=== PATIENT | female | born 1985 | race American Indian/Alaskan Native ===

== ENCOUNTER 2019-01-17 20:37 | Emergency (ER) | payer OTHER ==
--- NOTE | 2019-01-17 21:03 | Emergency Department Report ---
Blank Doc - Documentation Documentation: 33 y/o female comes in for chest pain. She has been out of her lisinopril for a week. Feels overwhelmed. Tearful in Triage.
[2019-01-17] MEDS ORDERED: CATAPRES PO ONE (21:04)
[2019-01-17] MEDS ORDERED: CATAPRES ONE (21:10)
[2019-01-17 21:49] LABS: Hematocrit 40.2 % (30.3-42.9); Hemoglobin 12.6 gm/dl (10.1-14.3); Mean Corpuscular HGB Conc 31 % (30-34); Mean Corpuscular Volume 79 fl (79-97); Platelet Count 166 K/mm3 (140-440); Red Blood Count 5.09 M/mm3 (3.65-5.03); Red Cell Distribution Width 15.5 % (13.2-15.2)
[2019-01-17 21:50] LABS: Basophils # (Auto) 0.1 K/mm3 (0.0-0.1); Basophils % (Auto) 0.9 % (0.0-1.8); Eosinophils # (Auto) 0.2 K/mm3 (0.0-0.4); Eosinophils % (Auto) 2.8 % (0.0-4.3); Lymphocytes # (Auto) 1.6 K/mm3 (1.2-5.4); Lymphocytes % (Auto) 27.9 % (13.4-35.0); Monocytes # (Auto) 0.7 K/mm3 (0.0-0.8); Monocytes % (Auto) 12.8 % (0.0-7.3)
--- NOTE | 2019-01-17 21:51 | XRay Report ---
PROCEDURE: XR CHEST ROUTINE 2V TECHNIQUE: PA and lateral chest radiographs were obtained. HISTORY: chest pain COMPARISONS: None. FINDINGS: Heart: Normal. Mediastinum/Vessels: Normal. Lungs/Pleural space: Normal. Bony thorax: No acute osseous abnormality. IMPRESSION: Normal examination. This document is electronically signed by Juan David MD., January 17 2019 09:49:33 PM ET
[2019-01-17 21:55] LABS: Alanine Aminotransferase 18 units/L (7-56); Albumin 3.6 g/dL (3.9-5); BUN/Creatinine Ratio 14; Blood Urea Nitrogen 13 mg/dL (7-17); Calcium 9.5 mg/dL (8.4-10.2); Hemolysis Index 9
[2019-01-17] MEDS ORDERED: TYLENOL PO ONE (22:15)
[2019-01-17] MEDS ORDERED: TORADOL IM ONE (22:15)
[2019-01-17] MEDS ORDERED: PEPCID PO ONE (22:15)
--- NOTE | 2019-01-17 22:54 | Emergency Department Report ---
ED Chest Pain HPI - General Chief Complaint: Chest Pain Stated Complaint: CHEST PAIN Time Seen by Provider: 01/17/19 22:03 Source: patient, RN notes reviewed, old records reviewed Mode of arrival: Ambulatory Limitations: No Limitations - History of Present Illness Initial Comments: Primary care Dr.: Dr. Womack This is a 33-year-old female. The patient is not known to this provider previously. Past medical history includes hypertension, and obesity. She ran out of her medication at home, was in a protocol, believes that it was 20 mg. Patient reports that she is not . She does not take oral contraceptives. She has not taken aspirin within the past 7 days. She denies DVT, pulmonary embolus risk factors. The patient presents to emergency room with complaint of chest pain. The chest pain is sternal, and in the left superior, middle breast. It does not radiate to the back, arms or neck. It is intermittent. It increases with palpation, deep inspiration, decreases with rest. She also reports feeling tired. She also reports feeling short of breath. The shortness of breath is present for one week. The chest pain is present intermittently for one week. The patient denies cocaine use, aspirin use, family history of heart disease. She also reports that she feels very anxious. The patient also complains of headache. The headache is present for a week. It is intermittent. It is not sudden or thunderclap in nature. It is not maximal in intensity. 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 She also admits to using her cell phone quite a bit. However, she does not know how much screen time she has on her cell phone per se. There is no neck pain, no abdominal pain, no urinary symptoms, no lower extremity pain. MD Complaint: chest pain, other -: Gradual, days(s) Pain Location: substernal, left chest Pain Radiation: RUE Severity: moderate Severity scale (0 -10): 9 Quality: tightness, aching Consistency: intermittent Improves With: other Worsens With: other re: dyspnea Aspirin use within the Past 7 Days: (0) No - Related Data On Oral Contraceptives: No Previous Rx's Medication Instructions Recorded Last Taken Type Acetaminophen 650 mg PO Q6HR PRN #30 capsule 01/18/19 Unknown Rx Ibuprofen [Motrin] 600 mg PO Q8H PRN #30 tablet 01/18/19 Unknown Rx Lisinopril [Zestril TAB] 20 mg PO QDAY #30 tablet 01/18/19 Unknown Rx Allergies Allergy/AdvReac Type Severity Reaction Status Date / Time penicillin Allergy Swelling Verified 05/25/15 19:58 Heart Score - HEART Score History: Moderately suspicious EKG: Non-specific Age: < 45 Risk factors: 1-2 risk factors Troponin: < normal limit HEART Score: 3 - Critical Actions Critical Actions: 0-3 pts:0.9-1.7%risk of adverse cardiac event.Candidate for discharge ED Review of Systems ROS: Stated complaint: CHEST PAIN Other details as noted in HPI Constitutional: malaise. denies: fever Eyes: denies: eye discharge ENT: denies: epistaxis Respiratory: shortness of breath Cardiovascular: chest pain Gastrointestinal: denies: nausea, vomiting Genitourinary: denies: dysuria Musculoskeletal: denies: back pain Skin: denies: lesions Neurological: headache, weakness Psychiatric: anxiety ED Past Medical Hx - Past Medical History Previous Medical History?: Yes Hx Hypertension: Yes Additional medical history: Morbid Obesity - Surgical History Past Surgical History?: No - Social History Smoking Status: Current Every Day Smoker Substance Use Type: None - Medications Home Medications: Home Medications Medication Instructions Recorded Confirmed Last Taken Type Acetaminophen 650 mg PO Q6HR PRN #30 capsule 01/18/19 Unknown Rx Ibuprofen [Motrin] 600 mg PO Q8H PRN #30 tablet 01/18/19 Unknown Rx Lisinopril [Zestril TAB] 20 mg PO QDAY #30 tablet 01/18/19 Unknown Rx ED Physical Exam - General Limitations: No Limitations General appearance: alert, anxious, obese - Head Head exam: Present: atraumatic, normocephalic - Eye Eye exam: Present: normal appearance, EOMI. Absent: nystagmus - ENT ENT exam: Present: normal exam, normal orophraynx, mucous membranes moist, normal external ear exam - Neck Neck exam: Present: normal inspection, full ROM. Absent: tenderness, meningismus - Respiratory Respiratory exam: Present: normal lung sounds bilaterally, chest wall tenderness, other (there is reproducible central chest and left breast tendern ess. There is no redness, pus or streaking. Chaperoned by nurse Laura Kern). Absent: respiratory distress - Cardiovascular Cardiovascular Exam: Present: regular rate, normal rhythm, normal heart sounds. Absent: bradycardia, tachycardia, irregular rhythm, systolic murmur, diastolic murmur, rubs, gallop - GI/Abdominal GI/Abdominal exam: Present: soft. Absent: distended, tenderness, guarding, rebound, rigid, pulsatile mass - Extremities Exam Extremities exam: Present: normal inspection, full ROM, other (2+ pulses noted in the bilateral upper, lower extremities. Compartments soft. No long bony tenderness. The pelvis is stable.). Absent: pedal edema, joint swelling, calf tenderness - Back Exam Back exam: Present: normal inspection, full ROM. Absent: tenderness, CVA tenderness (R), paraspinal tenderness, vertebral tenderness - Neurological Exam Neurological exam: Present: alert, oriented X3, CN II-XII intact, normal gait, other (Extraocular movements intact. Tongue midline. No facial droop. Facial sensation intact to light touch in the V1, V2, V3 distribution bilaterally. 5 and 5 strength in 4 extremities.. Sensation is intact to light touch in 4 extremities.). Absent: motor sensory deficit - Psychiatric Psychiatric exam: Present: anxious - Skin Skin exam: Present: warm, dry, intact, normal color. Absent: rash ED Course Vital Signs 01/17/19 01/17/19 01/17/19 20:41 20:58 21:10 Temperature 98.7 F 98.7 F Pulse Rate 97 H 97 H 97 H Respiratory 18 Rate Blood Pressure 217/127 217/127 217/127 Blood Pressure [Left] O2 Sat by Pulse 97 97 Oximetry 01/17/19 01/17/19 01/17/19 21:51 21:56 22:00 Temperature 98.2 F Pulse Rate 94 H 92 H 84 Respiratory 12 17 Rate Blood Pressure 168/101 Blood Pressure 169/116 [Left] O2 Sat by Pulse 97 99 Oximetry 01/17/19 01/17/19 01/17/19 22:15 22:40 22:59 Temperature Pulse Rate 83 Respiratory 11 L 16 16 Rate Blood Pressure 168/101 Blood Pressure [Left] O2 Sat by Pulse 98 98 Oximetry - Reevaluation(s) Reevaluation #1: 01/17/19 22:52 Differential diagnosis, including not limited to: Costochondritis, GERD, gastritis, hiatal hernia, pneumonia, acute coronary syndrome, pulmonary embolus, pleuritis, pericarditis Assessment and plan: 33-year-old female with endorsement of one week of intermittent chest pain, reproducible, troponin negative 1, EKG unchanged from prior, equal pulses in the upper, lower extremities, unremarkable x-ray of the chest, therefore, think aortic disease is very unlikely. Clonidine ordered before my evaluation by physician academic assistant in triage, blood pressure improved. Pulmonary embolus or DVT risk factors, low risk by well's criteria, perc negative However, given endorsement of shortness of breath, pleuritic component, we will send a d-dimer to risk stratify the patient. We will treat her pain. Explained to patient that she is at low risk for major adverse cardiac event. Patient reports that she is reliable to follow up with an outpatient agricultural inspector. Through showed decision-making, assuming unremarkable ER workup, we would consider the patient medically suitable to follow up with an outpatient primary care doctor or agricultural inspector to complete a cardiac risk stratification. Please note that it is typical practice at this institution for our cardiology groups to be amenable to see patients closely as an outpatient, to continue, complete their cardiac risk stratification. Reevaluation #2: 01/18/19 00:13 The patient feels improved. Troponin is negative 2. D-dimer is negative. Blood pressures improved. The patient endorses readiness for discharge. On additional history, she endorses that she's been told that she snores at bed, and occasionally falls asleep during the day, and when front of a TV. She does not have a formal diagnosis of sleep apnea, but given her body habitus and articulated symptoms, I concerned that this may be a coexisting diagnosis. Discussed diet and left, medications, weight loss, and we will also advise outpatient follow-up with his sleep specialist to rule in or rule out a formal diagnosis of obstructive sleep apnea. KINGSLEY score - Kingsley Score Age > 65: (0) No Aspirin use within the Past 7 Days: (0) No 3 or more CAD Risk Factors: (0) No 2 or more Angina events in past 24 hrs: (0) No Known CAD with more than 50% Stenosis: (0) No Elevated Cardiac Markers: (0) No ST Deviation Greater than 0.5mm: (0) No KINGSLEY Score: 0 ED Medical Decision Making - Lab Data Result diagrams: 01/17/19 21:16 01/17/19 21:16 Vital Signs 01/17/19 01/17/19 01/17/19 20:41 20:58 21:10 Temperature 98.7 F 98.7 F Pulse Rate 97 H 97 H 97 H Respiratory 18 Rate Blood Pressure 217/127 217/127 217/127 Blood Pressure [Left] O2 Sat by Pulse 97 97 Oximetry 01/17/19 01/17/19 01/17/19 21:51 21:56 22:00 Temperature 98.2 F Pulse Rate 94 H 92 H 84 Respiratory 12 17 Rate Blood Pressure 168/101 Blood Pressure 169/116 [Left] O2 Sat by Pulse 97 99 Oximetry 01/17/19 22:15 Temperature Pulse Rate 83 Respiratory 11 L Rate Blood Pressure 168/101 Blood Pressure [Left] O2 Sat by Pulse 98 Oximetry Lab Results 01/17/19 01/17/19 Range/Units 21:16 21:16 WBC 5.7 (4.5-11.0) K/mm3 RBC 5.09 H (3.65-5.03) M/mm3 Hgb 12.6 (10.1-14.3) gm/dl Hct 40.2 (30.3-42.9) % MCV 79 (79-97) fl MCH 25 L (28-32) pg MCHC 31 (30-34) % RDW 15.5 H (13.2-15.2) % Plt Count 166 (140-440) K/mm3 Lymph % (Auto) 27.9 (13.4-35.0) % [place] % (Auto) 12.8 H (0.0-7.3) % Eos % (Auto) 2.8 (0.0-4.3) % Baso % (Auto) 0.9 (0.0-1.8) % Lymph # 1.6 (1.2-5.4) K/mm3 [place] # 0.7 (0.0-0.8) K/mm3 Eos # 0.2 (0.0-0.4) K/mm3 Baso # 0.1 (0.0-0.1) K/mm3 Seg Neutrophils % 55.6 (40.0-70.0) % Seg Neutrophils # 3.2 (1.8-7.7) K/mm3 Sodium 142 (137-145) mmol/L Potassium 3.9 (3.6-5.0) mmol/L Chloride 104.3 (98-107) mmol/L Carbon Dioxide 27 (22-30) mmol/L Anion Gap 15 mmol/L BUN 13 (7-17) mg/dL Creatinine 0.9 (0.7-1.2) mg/dL Estimated GFR > 60 ml/min BUN/Creatinine Ratio 14 % Glucose 77 (65-100) mg/dL Calcium 9.5 (8.4-10.2) mg/dL Total Bilirubin 0.20 (0.1-1.2) mg/dL AST 17 (5-40) units/L ALT 18 (7-56) units/L Alkaline Phosphatase 104 (35-129) units/L Troponin T < 0.010 (0.00-0.029) ng/mL Total Protein 7.5 (6.3-8.2) g/dL Albumin 3.6 L (3.9-5) g/dL Albumin/Globulin Ratio 0.9 % - EKG Data -: EKG Interpreted by Oh EKG shows normal: sinus rhythm Rate: normal - EKG Data When compared to previous EKG there are: no significant change Interpretation: no acute changes 01/17/19 22:54 EKG shows a sinus rhythm, 80 beats for minute, normal axis, QTC 444 ms, borderline high left ventricular voltage, early repolarization, nonspecific abnormalities, this EKG is not consistent with ST elevation myocardial infarction, it appears to be unchanged from prior EKG from 05/25/2015. - Radiology Data Radiology results: report reviewed, image reviewed X-ray the chest interpreted as negative for acute disease. Critical care attestation.: If time is entered above; I have spent that time in minutes in the direct care of this critically ill patient, excluding procedure time. ED Disposition Clinical Impression: Elevated blood pressure reading, Chest wall pain, Shortness of breath Disposition: DC-01 TO HOME OR SELFCARE Is pt being admited?: No Does the pt Need Aspirin: No Condition: Stable Instructions: Chest Pain (ED), Snoring (ED) Additional Instructions: Take a blood pressure medication as directed. Take pain medications as needed/directed. Follow up with a primary care doctor or agricultural inspector within the next 3 days for complaint of chest pain and high blood pressure. If following up with [facility] doctors, please make sure to call the front office, through the listed phone numbers, and let the office staff know that the patient was seen here for chest pain, and has been instructed to closely follow up as an outpatient for a cardiac stress test. Please make certain to remain compliant with blood pressure medications. Long-term complications of hypertension and elevated blood pressure includes stroke, heart attack, disability, paralysis, loss of quality of life. I recommended the patient follow up with a sleep specialist within the next 3-4 weeks to evaluate for potential obstructive sleep apnea. Patient may consult her personal insurance company for outpatient references who specializes in sleep, or she may follow-up with either of the local sleep specially doctors, including Gorge Gross and [place] Please return to the emergency room right away with new pain, worsened pain, migration of pain, projectile vomiting, change in mental status, confusion, inability to speak, inability to breathe, new, worsening or different symptoms. Referrals: POLO WOMACK MD, PHD [Staff Physician] - 3-5 Days J CARLOS BECERRA MD [Staff Physician] - 3-5 Days ADRI GROSS MD [Staff Physician] - 3-5 Days [facility] [Provider Group] - 3-5 Days [facility] [Provider Group] - 3-5 Days
[2019-01-17 23:12] LABS: INR 0.98 (0.87-1.13)
[2019-01-18 00:42] VITALS: BP 179/113
== END 2019-01-18 00:41 | disposition home or self-care (01) ==
LOC: ED 20:37
DX: I10 Essential (primary) hypertension (principal); Z88.0 Allergy status to penicillin; E66.9 Obesity, unspecified; Z68.42 Body mass index [BMI] 45.0-49.9, adult
CPT/HCPCS: 36415; 71046; 80053; 84484; 84702; 85025; 85379; 85610; 93005; 93010; 96372; 99284; J1885

== ENCOUNTER 2019-08-04 10:07 | Emergency (ER) | payer OTHER ==
[2019-08-04] MEDS ORDERED: ASPIRIN 325 MG TAB PO ONE (10:12)
[2019-08-04 10:39] LABS: Basophils % (Auto) 0.8 % (0.0-1.8); Eosinophils # (Auto) 0.1 K/mm3 (0.0-0.4); Eosinophils % (Auto) 2.2 % (0.0-4.3); Lymphocytes # (Auto) 1.5 K/mm3 (1.2-5.4); Lymphocytes % (Auto) 26.1 % (13.4-35.0); Mean Corpuscular HGB Conc 31 % (30-34); Mean Corpuscular Volume 81 fl (79-97); Monocytes # (Auto) 0.5 K/mm3 (0.0-0.8); Monocytes % (Auto) 8.8 % (0.0-7.3); Red Blood Count 5.14 M/mm3 (3.65-5.03)
--- NOTE | 2019-08-04 10:48 | XRay Report ---
CHEST 2 VIEWS INDICATION: Chest Pain. COMPARISON: 05/19/2019 FINDINGS: Support devices: None. Heart: Within normal limits. Pulmonary vasculature: Normal. Lungs/pleura: No acute air space or interstitial disease. No pneumothorax. Additional findings: None. IMPRESSION: Normal chest. Signer Name: Alli Greenwood MD Signed: 08/04/2019 10:43 AM Workstation Name: [id number]
[2019-08-04 10:49] LABS: Hematocrit 41.5 % (30.3-42.9); Hemoglobin 12.8 gm/dl (10.1-14.3)
[2019-08-04 11:00] LABS: BUN/Creatinine Ratio 17; Blood Urea Nitrogen 10 mg/dL (7-17); Calcium 9.2 mg/dL (8.4-10.2); Hemolysis Index 7
[2019-08-04] MEDS ORDERED: hydrALAZINE 20 MG/1 ML INJ IV ONE (11:30)
--- NOTE | 2019-08-04 11:30 | Emergency Department Report ---
ED General Adult HPI - General Chief complaint: Chest Pain Stated complaint: CHEST PAIN FOR 1WK Time Seen by Provider: 08/04/19 11:29 Source: patient Mode of arrival: Ambulatory Limitations: No Limitations - History of Present Illness Initial comments: 34 yo AA female comes to ER with co intermittent right and left sided sharp chest pain for weeks. Pt has htn and has been taking her meds but she states that they have not been controlling her bp because she has gained weight. Pt works with [employer] and has an interview to change jobs. She will never pass the physical with her bp high so she comes today to get her bp meds changed. She has pcp but can not get in to see him in August. No sob. No edema. Rx lisinopril hctz -: week(s) Radiation: non-radiation Quality: stabbing Consistency: intermittent Improves with: none Worsens with: none Associated Symptoms: denies other symptoms Treatments Prior to Arrival: none - Related Data Previous Rx's Medication Instructions Recorded Last Taken Type Lisinopril [Zestril TAB] 20 mg PO QDAY #30 tablet 01/18/19 Unknown Rx Amlodipine Besylate [Norvasc] 5 mg PO DAILY #30 tablet 08/04/19 Unknown Rx Allergies Allergy/AdvReac Type Severity Reaction Status Date / Time penicillin Allergy Swelling Verified 05/25/15 19:58 ED Review of Systems ROS: Stated complaint: CHEST PAIN FOR 1WK Other details as noted in HPI Comment: All other systems reviewed and negative ED Past Medical Hx - Past Medical History Previous Medical History?: Yes Hx Hypertension: Yes Additional medical history: Morbid Obesity - Surgical History Past Surgical History?: No - Family History Family history: no significant - Social History Smoking Status: Never Smoker Substance Use Type: None - Medications Home Medications: Home Medications Medication Instructions Recorded Confirmed Last Taken Type Lisinopril [Zestril TAB] 20 mg PO QDAY #30 tablet 01/18/19 Unknown Rx Amlodipine Besylate [Norvasc] 5 mg PO DAILY #30 tablet 08/04/19 Unknown Rx ED Physical Exam - General Limitations: No Limitations General appearance: alert, in no apparent distress - Head Head exam: Present: atraumatic, normocephalic - Eye Eye exam: Present: normal appearance - ENT ENT exam: Present: mucous membranes moist - Neck Neck exam: Present: normal inspection - Respiratory Respiratory exam: Present: normal lung sounds bilaterally. Absent: respiratory distress - Cardiovascular Cardiovascular Exam: Present: regular rate, normal rhythm. Absent: systolic murmur, diastolic murmur, rubs, gallop - GI/Abdominal GI/Abdominal exam: Present: soft, normal bowel sounds - Extremities Exam Extremities exam: Present: normal inspection - Back Exam Back exam: Present: normal inspection - Neurological Exam Neurological exam: Present: alert, oriented X3 - Psychiatric Psychiatric exam: Present: normal affect, normal mood - Skin Skin exam: Present: warm, dry, intact, normal color. Absent: rash ED Course Vital Signs 08/04/19 08/04/19 08/04/19 10:43 11:19 11:31 Temperature 98.7 F Pulse Rate 94 H 84 87 Respiratory 16 21 14 Rate Blood Pressure 180/116 162/112 Blood Pressure [Left] O2 Sat by Pulse 96 99 Oximetry 08/04/19 08/04/19 08/04/19 11:48 12:01 12:30 Temperature 98.4 F Pulse Rate 90 83 82 Respiratory 12 17 13 Rate Blood Pressure 172/110 177/122 Blood Pressure 184/111 [Left] O2 Sat by Pulse 99 98 99 Oximetry 08/04/19 08/04/19 08/04/19 13:01 13:31 13:39 Temperature Pulse Rate 75 85 79 Respiratory 11 L 15 Rate Blood Pressure 177/122 177/122 170/109 Blood Pressure [Left] O2 Sat by Pulse 99 98 Oximetry 08/04/19 08/04/19 08/04/19 13:54 14:01 14:35 Temperature Pulse Rate 88 96 H Respiratory 15 Rate Blood Pressure 186/109 182/116 Blood Pressure 164/103 [Left] O2 Sat by Pulse 99 Oximetry 08/04/19 08/04/19 08/04/19 14:41 15:00 15:30 Temperature Pulse Rate 90 Respiratory Rate Blood Pressure 179/98 182/104 170/91 Blood Pressure [Left] O2 Sat by Pulse 100 98 Oximetry 08/04/19 15:35 Temperature 98.5 F Pulse Rate 91 H Respiratory 16 Rate Blood Pressure Blood Pressure 166/89 [Left] O2 Sat by Pulse 99 Oximetry ED Medical Decision Making - Lab Data Result diagrams: 08/04/19 10:28 08/04/19 10:28 - EKG Data EKG shows normal: sinus rhythm Rate: normal - EKG Data When compared to previous EKG there are: no significant change Interpretation: no acute changes - Radiology Data Radiology results: report reviewed, image reviewed - Medical Decision Making Labs 08/04/19 08/04/19 10:28 10:28 WBC 5.8 RBC 5.14 H Hgb 12.8 Hct 41.5 MCV 81 MCH 25 L MCHC 31 RDW 15.0 Plt Count 320 Lymph % (Auto) 26.1 [place] % (Auto) 8.8 H Eos % (Auto) 2.2 Baso % (Auto) 0.8 Lymph # 1.5 [place] # 0.5 Eos # 0.1 Baso # 0.0 Seg Neutrophils % 62.1 Seg Neutrophils # 3.6 Sodium 139 Potassium 4.2 Chloride 100.8 Carbon Dioxide 25 Anion Gap 17 BUN 10 Creatinine 0.6 L Estimated GFR > 60 BUN/Creatinine Ratio 17 Glucose 113 H Calcium 9.2 Troponin T < 0.010 Vital Signs 08/04/19 08/04/19 08/04/19 10:43 11:19 11:31 Temperature 98.7 F Pulse Rate 94 H 84 87 Respiratory 16 21 14 Rate Blood Pressure 180/116 162/112 Blood Pressure [Left] O2 Sat by Pulse 96 99 Oximetry 08/04/19 08/04/19 08/04/19 11:48 12:01 12:30 Temperature 98.4 F Pulse Rate 90 83 82 Respiratory 12 17 13 Rate Blood Pressure 172/110 177/122 Blood Pressure 184/111 [Left] O2 Sat by Pulse 99 98 99 Oximetry 08/04/19 08/04/19 08/04/19 13:01 13:31 13:39 Temperature Pulse Rate 75 85 79 Respiratory 11 L 15 Rate Blood Pressure 177/122 177/122 170/109 Blood Pressure [Left] O2 Sat by Pulse 99 98 Oximetry 08/04/19 13:54 Temperature Pulse Rate 88 Respiratory Rate Blood Pressure Blood Pressure 164/103 [Left] O2 Sat by Pulse Oximetry ekg noted- nap labs noted trop neg x 2 hydral given- with slow and mild dec in bp- did not want to drop too fast. given norvasc po long discussion with pt about bp and monitoring and follow up. She verbalizes understanding and will follow up with pcp Critical care attestation.: If time is entered above; I have spent that time in minutes in the direct care of this critically ill patient, excluding procedure time. ED Disposition Clinical Impression: HTN (hypertension) Disposition: DC-01 TO HOME OR SELFCARE Is pt being admited?: No Does the pt Need Aspirin: No Condition: Stable Instructions: Hypertension (ED) Additional Instructions: low salt low fat diet meds as ordered today- start in am continue home lisinopril and hctz drink a lot of water follow up with pcp referrals below Prescriptions: Amlodipine Besylate [Norvasc] 5 mg PO DAILY #30 tablet Referrals: [facility] [Outside] - 3-5 Days PRAKASH YU MD [Staff Physician] - 3-5 Days Time of Disposition: 14:27
[2019-08-04 11:43] LABS: Platelet Count 320 K/mm3 (140-440)
[2019-08-04] MEDS ORDERED: ASPIRIN 325 MG TAB ONE (12:26)
[2019-08-04] MEDS ORDERED: amLODIPine 5 MG TAB PO ONE (14:25)
[2019-08-04 15:49] VITALS: BP 166/89
== END 2019-08-04 15:35 | disposition home or self-care (01) ==
LOC: ED 10:07
DX: I10 Essential (primary) hypertension (principal); E66.01 Morbid (severe) obesity due to excess calories
CPT/HCPCS: 36415; 71046; 80048; 84484; 85025; 93005; 93010; 96374; 99284; J0360

== ENCOUNTER 2020-11-16 17:45 | Emergency (ER) | payer OTHER ==
--- NOTE | 2020-11-16 18:01 | Event Note ---
ED Screening Note ED Screening Note: Patient is a 35-year-old female presents emergency room complaints of substernal chest pain which she states feels like radiates to the throat that began yesterday She denies any shortness of breath, fever, nausea, vomiting, diarrhea, cough, leg swelling Past medical history of hypertension and CHF Allergy to penicillin Former smoker This initial assessment/diagnostic orders/clinical plan/treatment(s) is/are subject to change based on patients health status, clinical progression and re- assessment by fellow clinical providers in the ED. Further treatment and workup at subsequent clinical providers discretion. Patient/guardian urged not to elope from the ED as their condition may be serious if not clinically assessed and managed. Initial orders include: Chest pain protocol
--- NOTE | 2020-11-16 18:24 | XRay Report ---
CHEST 2 VIEWS INDICATION / CLINICAL INFORMATION: Chest Pain. COMPARISON: 08/04/2019 FINDINGS: SUPPORT DEVICES: None. HEART / MEDIASTINUM: No significant abnormality. LUNGS / PLEURA: No significant pulmonary or pleural abnormality. No pneumothorax. ADDITIONAL FINDINGS: No significant additional findings. IMPRESSION: 1. No acute findings. Signer Name: Heber Evans MD Signed: 11/16/2020 6:19 PM Workstation Name: [id number]
[2020-11-16 18:29] LABS: Basophils % (Auto) 0.6 % (0.0-1.8); Eosinophils # (Auto) 0.1 K/mm3 (0.0-0.4); Eosinophils % (Auto) 1.4 % (0.0-4.3); Hematocrit 38.8 % (30.3-42.9); Hemoglobin 12.4 gm/dl (10.1-14.3); Lymphocytes # (Auto) 1.8 K/mm3 (1.2-5.4); Lymphocytes % (Auto) 26.2 % (13.4-35.0); Mean Corpuscular HGB Conc 32 % (30-34); Mean Corpuscular Volume 85 fl (79-97); Monocytes # (Auto) 0.7 K/mm3 (0.0-0.8); Monocytes % (Auto) 10.3 % (0.0-7.3); Platelet Count 199 K/mm3 (140-440); Red Blood Count 4.58 M/mm3 (3.65-5.03); Red Cell Distribution Width 14.2 % (13.2-15.2)
[2020-11-16 18:54] LABS: Alanine Aminotransferase 15 units/L (7-56); Albumin 3.6 g/dL (3.9-5); BUN/Creatinine Ratio 25; Blood Urea Nitrogen 20 mg/dL (7-17); Calcium 9.2 mg/dL (8.4-10.2); Hemolysis Index 2
[2020-11-16] MEDS ORDERED: ASPIRIN 81 MG TAB CHEW PO ONE (20:09)
--- NOTE | 2020-11-16 20:11 | Emergency Department Report ---
ED Chest Pain HPI - General Chief Complaint: Chest Pain Stated Complaint: CHEST PAIN/RAPID HEART RATE/CHF Time Seen by Provider: 11/16/20 18:00 Source: patient Mode of arrival: Ambulatory Limitations: No Limitations - History of Present Illness Initial Comments: This is a 35-year-old female who presents to the emergency department with a complaint of some palpitations that she describes as a intermittent fluttering in her chest. She denies any chest pain but says that when the palpitations or fluttering occurs it is a discomfort. She denies having any palpitations or chest discomfort at the time of my initial examination. The symptoms started y and they last for about 15 minutes at a time. The patient says that sometimes they will worsen after eating and sometimes it will improve when she relaxes. She denies any shortness of breath, fever, cough, lower extremity swelling, nausea, vomiting or diaphoresis. She did not take anything for her symptoms prior to presentation. She is a former smoker. She denies any illicit drug use. No family history of early cardiac disease or NM. The patient herself has a past medical history of hypertension and CHF. She does not have a primary care physician or typewriter operator automatic. No recent travel, recent surgery, recent immobility, sick contacts at home. - Related Data Previous Rx's Medication Instructions Recorded Last Taken Type hydroCHLOROthiazide [HCTZ] 25 mg PO QDAY #30 tablet 11/16/20 Unknown Rx lisinopriL [Lisinopril] 10 mg PO QDAY #30 tablet 11/16/20 Unknown Rx Allergies Allergy/AdvReac Type Severity Reaction Status Date / Time penicillin Allergy Swelling Verified 11/16/20 17:54 Heart Score - HEART Score History: Slightly suspicious EKG: Non-specific Age: < 45 Risk factors: 1-2 risk factors Troponin: < normal limit HEART Score: 2 - Critical Actions Critical Actions: 0-3 pts:0.9-1.7%risk of adverse cardiac event.Candidate for discharge ED Review of Systems ROS: Stated complaint: CHEST PAIN/RAPID HEART RATE/CHF Other details as noted in HPI Comment: All other systems reviewed and negative Constitutional: denies: chills, fever Eyes: denies: eye pain, vision change ENT: denies: ear pain, throat pain Respiratory: denies: cough, shortness of breath Cardiovascular: palpitations. denies: edema Gastrointestinal: denies: abdominal pain, vomiting Genitourinary: denies: dysuria, discharge Musculoskeletal: denies: back pain, arthralgia Skin: denies: rash, lesions Neurological: denies: headache, weakness ED Past Medical Hx - Past Medical History Hx Hypertension: Yes Hx Congestive Heart Failure: Yes Additional medical history: Morbid Obesity - Surgical History Past Surgical History?: No - Social History Smoking Status: Never Smoker Substance Use Type: None - Medications Home Medications: Home Medications Medication Instructions Recorded Confirmed Last Taken Type hydroCHLOROthiazide [HCTZ] 25 mg PO QDAY #30 tablet 11/16/20 Unknown Rx lisinopriL [Lisinopril] 10 mg PO QDAY #30 tablet 11/16/20 Unknown Rx ED Physical Exam - General Limitations: No Limitations - Other Other exam information: GENERAL: The patient is well-developed well-nourished. HENT: Normocephalic. Atraumatic. Patient has moist mucous membranes. EYES: Extraocular motions are intact. NECK: Supple. Trachea is midline. CHEST/LUNGS: Clear to auscultation. There is no respiratory distress noted. HEART/CARDIOVASCULAR: Regular. There is no tachycardia. There is no murmur. ABDOMEN: Abdomen is soft, nontender. Patient has normal bowel sounds. Obese habitus. SKIN: Skin is warm and dry. NEURO: The patient is awake, alert, and oriented. The patient is cooperative. The patient has no focal neurologic deficits. Normal speech. MUSCULOSKELETAL: There is no tenderness or deformity. There is no limitation range of motion. ED Course Vital Signs 11/16/20 11/16/20 17:58 20:00 Temperature 98.7 F Pulse Rate 98 H 93 H Respiratory 20 18 Rate Blood Pressure 107/67 Blood Pressure 141/75 [Left] O2 Sat by Pulse 95 99 Oximetry - Reevaluation(s) Reevaluation #1: 11/17/20 00:44 Vital Signs 11/16/20 11/16/20 17:58 20:00 Temperature 98.7 F Pulse Rate 98 H 93 H Respiratory 20 18 Rate Blood Pressure 107/67 Blood Pressure 141/75 [Left] O2 Sat by Pulse 95 99 Oximetry HAIR score - Hair Score Age > 65: (0) No Aspirin use within the Past 7 Days: (0) No 3 or more CAD Risk Factors: (0) No 2 or more Angina events in past 24 hrs: (0) No Known CAD with more than 50% Stenosis: (0) No Elevated Cardiac Markers: (0) No ST Deviation Greater than 0.5mm: (0) No HAIR Score: 0 ED Medical Decision Making - Lab Data Result diagrams: 11/16/20 18:07 11/16/20 18:07 Lab Results 11/16/20 11/16/20 Range/Units 18:07 18:07 WBC 6.9 (4.5-11.0) K/mm3 RBC 4.58 (3.65-5.03) M/mm3 Hgb 12.4 (10.1-14.3) gm/dl Hct 38.8 (30.3-42.9) % MCV 85 (79-97) fl MCH 27 L (28-32) pg MCHC 32 (30-34) % RDW 14.2 (13.2-15.2) % Plt Count 199 (140-440) K/mm3 Lymph % (Auto) 26.2 (13.4-35.0) % [place] % (Auto) 10.3 H (0.0-7.3) % Eos % (Auto) 1.4 (0.0-4.3) % Baso % (Auto) 0.6 (0.0-1.8) % Lymph # (Auto) 1.8 (1.2-5.4) K/mm3 [place] # (Auto) 0.7 (0.0-0.8) K/mm3 Eos # (Auto) 0.1 (0.0-0.4) K/mm3 Baso # (Auto) 0.0 (0.0-0.1) K/mm3 Seg Neutrophils % 61.5 (40.0-70.0) % Seg Neutrophils # 4.2 (1.8-7.7) K/mm3 Sodium 137 (137-145) mmol/L Potassium 3.5 L (3.6-5.0) mmol/L Chloride 97.8 L (98-107) mmol/L Carbon Dioxide 34 H (22-30) mmol/L Anion Gap 9 mmol/L BUN 20 H (7-17) mg/dL Creatinine 0.8 (0.6-1.2) mg/dL Estimated GFR > 60 ml/min BUN/Creatinine Ratio 25 % Glucose 106 H (65-100) mg/dL Calcium 9.2 (8.4-10.2) mg/dL Total Bilirubin 0.20 (0.1-1.2) mg/dL AST 16 (5-40) units/L ALT 15 (7-56) units/L Alkaline Phosphatase 81 (35-129) units/L Troponin T < 0.010 (0.00-0.029) ng/mL NT-Pro-B Natriuret Pep 96.25 (0-450) pg/mL Total Protein 7.3 (6.3-8.2) g/dL Albumin 3.6 L (3.9-5) g/dL Albumin/Globulin Ratio 1.0 % - EKG Data -: EKG Interpreted by Me EKG shows normal: sinus rhythm, axis, intervals (Mild prolongation of [place] interval), QRS complexes (Incomplete right bundle branch block), ST-T waves Rate: normal - EKG Data When compared to previous EKG there are: no significant change Interpretation: unchanged when compared t (08/04/19) - Radiology Data Radiology results: image reviewed interpreted by me: Chest x-ray does not show any acute process. There are no pleural effusions, obvious pneumonia and there is no pneumothorax. No significant cardiomegaly. - Medical Decision Making This patient presents to the emergency department with a complaint of having some intermittent fluttering in her chest consistent with palpitations, but that also causes some chest discomfort when it occurs. She denies any shortness of breath. At the time of my initial examination the patient is asymptomatic. EKG did not show any morphology consistent with ST elevation myocardial infarction or any dysrhythmia. Chest x-ray does not show any pneumonia, pleural effusions, pneumothorax, or any other acute process. Patient's labs have been unremarkable including CBC, metabolic panel, negative troponin, low proBNP. The patient is low on the heart and HAIR score. She is low on the Wells score criteria negative on the pulmonary embolism rule out criteria. Vital signs have been reassuring throughout her ED course including being afebrile. For all these reasons the patient appears safe for discharge home at this time. Her contact information has been sent over to the [facility], and someone from their office should be contacting the patient for close outpatient follow-up as per our hospitals low risk chest pain protocol. She has been instructed to return to the closest emergency department with any return of her symptoms, or with any acute distress. Critical Care Time: No Critical care attestation.: If time is entered above; I have spent that time in minutes in the direct care of this critically ill patient, excluding procedure time. ED Disposition Clinical Impression: Palpitations Disposition: DC-01 TO HOME OR SELFCARE Is pt being admited?: No Condition: Stable Instructions: Palpitations Additional Instructions: Please follow-up with a primary care physician in the next few days. I have given you a referral for a local primary care physician and a local clinic. I have sent your contact information over to the [facility], and someone from their office should be contacting you shortly for close outpatient follow-up. Just in case, I have given you a referral for one of their typewriter operator automatic, Dr. Cortes. Please try to get 8 hours of uninterrupted sleep at night. Avoid caffeine use. I have given you a refill of your blood pressure medications. Try to stay away from foods that are high in salt and caffeinated products. Keep a blood press ure log. Return to the emergency department with any worsening of your symptoms, new or concerning symptoms not addressed during this current emergency department visit, or with any acute distress. Prescriptions: hydroCHLOROthiazide [HCTZ] 25 mg PO QDAY #30 tablet lisinopriL [Lisinopril] 10 mg PO QDAY #30 tablet Referrals: RODRIGUEZ CORTES MD [Staff Physician] - 2-3 Days GARLAND MOJICA MD [Staff Physician] - 2-[address] [facility] [Provider Group] - 2-3 Days Time of Disposition: 20:12
[2020-11-16 20:25] VITALS: BP 141/75
== END 2020-11-16 20:25 | disposition home or self-care (01) ==
LOC: ED 17:45
DX: R00.2 Palpitations (principal); R07.89 Other chest pain; I11.0 Hypertensive heart disease with heart failure; I50.9 Heart failure, unspecified; Z79.899 Other long term (current) drug therapy; Z88.0 Allergy status to penicillin
CPT/HCPCS: 36415; 71046; 80053; 83880; 84484; 85025; 93005

== ENCOUNTER 2020-12-05 13:47 | Outpatient (CLI) | payer OTHER ==
--- NOTE | 2020-12-05 16:12 | Mammography Report ---
BILATERAL DIGITAL DIAGNOSTIC MAMMOGRAM WITH CAD , 12/05/2020 LEFT LIMITED BREAST ULTRASOUND CLINICAL INFORMATION / INDICATION: The patient reports a palpable lump in the left breast for 6 month s. She also reports bilateral clear and yellow nipple discharge. TECHNIQUE: Digital bilateral mammographic imaging was performed. Spot compression views were obtained . Limited ultrasound was performed. This examination was interpreted with the benefit of Computer-Aid ed Detection (CAD) analysis. COMPARISON: None. This is the patient's first mammogram. FINDINGS: Breast Density: There are scattered areas of fibroglandular density. MAMMOGRAPHIC FINDINGS: No dominant mass, suspicious calcifications, or architectural distortion in th e right breast. There is a circumscribed 1.4 cm retroareolar density corresponding to the patient's a latasha of palpable concern marked by the skin marker. ULTRASOUND FINDINGS: Targeted ultrasound evaluation was performed of the area of interest. Sonograp hic evaluation of the retroareolar left breast at the 8:00 position demonstrates a solid oval hypoech oic mass with slightly indistinct borders measuring 1.4 x 0.7 cm. There is minimal associated vascula rity. This corresponds to the patient's area of palpable concern and to the mammographic findings. IMPRESSION: 1. Palpable left retroareolar mass as described above which is moderately suspicious for malignancy. Ultrasound-guided biopsy is recommended. Follow up recommendation: Biopsy BI-RADS Category 4: Suspicious for Malignancy. A "normal" or negative report should not discourage follow up or biopsy of a clinically significant f inding. A written summary of these findings will be mailed to the patient. The patient will be entered into a mammography reporting system which will generate a reminder letter for the patient's next appointmen t at the appropriate interval. According to the [employer], yearly mammograms are recommended starting at age 40 and continuing as long as a woman is in good health. Breast MRI is recommended for women with an clari roximately 20-25% or greater lifetime risk of breast cancer, including women with a strong family his tory of breast or ovarian cancer and women who have been treated for Hodgkin's disease. Signer Name: Ebonie Ashford MD Signed: 12/05/2020 4:07 PM Workstation Name: [id number]
== END 2020-12-05 13:48 | disposition home or self-care (01) ==
LOC: SPVWC 13:47
PROVIDERS: ATTEND Surgery
DX: N63.24 Unspecified lump in the left breast, lower inner quadrant (principal); R92.8 Other abnormal and inconclusive findings on diagnostic imaging of breast
CPT/HCPCS: 77066

== ENCOUNTER 2021-02-07 11:06 | Outpatient (CLI) | payer OTHER ==
--- NOTE | 2021-02-07 15:41 | Mammography Report ---
RIGHT DIGITAL DIAGNOSTIC MAMMOGRAM WITH CAD CONVENTIONAL, 02/07/2021 RIGHT LIMITED BREAST ULTRASOUND CLINICAL INFORMATION / INDICATION: Right discharge for 2 weeks, described as yellowish/bloody, palpab le abnormality TECHNIQUE: Digital right mammographic imaging was performed. Spot compression and magnification views were obtained. Limited ultrasound was performed. This examination was interpreted with the benefit o f Computer-Aided Detection (CAD) analysis. COMPARISON: Screening mammography 12/05/2020 FINDINGS: Breast Density: There are scattered areas of fibroglandular density. MAMMOGRAPHIC FINDINGS: Spot magnification views of the retroareolar area shows again the mild nipple retraction (symmetric with the left on screening mammography) but no suspicious calcifications or mas ses. ULTRASOUND FINDINGS: Targeted ultrasound evaluation was performed of the area of interest. No masses are seen. Benign-appearing ductal ectasia is noted in the retroareolar area including the palpable si te at 12:00 involving several ducts. Benign-appearing lymph nodes are seen on the right axilla. IMPRESSION: No obvious source of described discharge is seen. Benign-appearing ductal ectasia is note d. Follow up recommendation: If there is strong clinical concern I would suggest MR BI-RADS Category 2: Benign. A "normal" or negative report should not discourage follow up or biopsy of a clinically significant f inding. A written summary of these findings will be mailed to the patient. The patient will be entered into a mammography reporting system which will generate a reminder letter for the patient's next appointmen t at the appropriate interval. According to the [employer], yearly mammograms are recommended starting at age 40 and continuing as long as a woman is in good health. Breast MRI is recommended for women with an clari roximately 20-25% or greater lifetime risk of breast cancer, including women with a strong family his tory of breast or ovarian cancer and women who have been treated for Hodgkin's disease. Signer Name: Buddy Avilez MD Signed: 02/07/2021 3:37 PM Workstation Name: [id number]
== END 2021-02-07 11:07 | disposition home or self-care (01) ==
LOC: SPVWC 11:06
PROVIDERS: ATTEND Surgery
DX: N63.0 Unspecified lump in unspecified breast (principal)

== ENCOUNTER 2021-02-13 10:43 | Outpatient (CLI) | payer OTHER ==
--- NOTE | 2021-02-13 12:01 | Ultrasound Report ---
ULTRASOUND GUIDED LEFT BREAST BIOPSY, 02/13/2021 CLINICAL INFORMATION / INDICATION: Biopsy of left retroareolar mass. COMPARISON: Left breast ultrasound and diagnostic bilateral mammogram performed on 12/05/2020. PROCEDURE: Risks, benefits, and indications to the procedure were discussed with the patient in detail, includin g bleeding, infection, hematoma formation, and inadequate tissue sampling. The patient agreed to proc eed with both verbal and written consent. A timeout procedure was performed with two patient identifi ers. Preliminary ultrasound demonstrated a persistent anterior retroareolar left breast mass measuring up to 1.3 cm, previously 1.4 cm. The breast was prepped and draped in the usual sterile fashion. Lidocai ne 1% with and without epinephrine were used for local anesthesia. Under direct ultrasound guidance, multiple core samples were obtained of the anterior left retroareolar mass. A biopsy marker was then placed. Biopsy device was removed and hemostasis achieved with manual pressure. A sterile dressing w as applied to the skin. The patient tolerated the procedure without difficulty. No complications were encountered. Postbiopsy instructions were discussed with the patient and given in writing. Specimens were sent to pathology. IMPRESSION: 1. Technically successful ultrasound guided left breast biopsy. Biopsy results are pending and will be reported in an addendum. Signer Name: Valentin Bloom MD Signed: 02/13/2021 11:56 AM Workstation Name: [id number]
--- NOTE | 2021-02-13 12:03 | Mammography Report ---
DIGITAL DIAGNOSTIC MAMMOGRAM WITH CAD, -- 02/13/2021 INDICATION: Status post ultrasound-guided left breast biopsy. TECHNIQUE: Digital left mammographic imaging was performed. This examination was interpreted with the benefit of Computer-aided Detection analysis. COMPARISON: Diagnostic bilateral mammogram performed on 12/05/2020. FINDINGS: Breast Density: There are scattered areas of fibroglandular density. Expected postbiopsy changes are seen along the anterior retroareolar region with concordant biopsy cl ip placement. No other significant abnormality is identified. IMPRESSION: Expected postbiopsy appearance of the left breast. Please correlate with the pathology report for the biopsy. Recommended Follow-Up: Clinical exam Post biopsy imaging. A "normal" or negative report should not discourage follow up or biopsy of a clinically significant f inding. A written summary of these findings will be mailed to the patient. The patient will be entered into a mammography reporting system which will generate a reminder letter for the patient's next appointmen t at the appropriate interval. According to the [employer], yearly mammograms are recommended starting at age 40 and continuing as long as a woman is in good health. Breast MRI is recommended for women with an clari roximately 20-25% or greater lifetime risk of breast cancer, including women with a strong family his tory of breast or ovarian cancer and women who have been treated for Hodgkin's disease. Signer Name: Valentin Bloom MD Signed: 02/13/2021 11:58 AM Workstation Name: [id number]
== END 2021-02-13 10:44 | disposition home or self-care (01) ==
LOC: SPVWC 10:43
PROVIDERS: ATTEND Surgery
DX: N63.20 Unspecified lump in the left breast, unspecified quadrant (principal); N63.0 Unspecified lump in unspecified breast; R92.8 Other abnormal and inconclusive findings on diagnostic imaging of breast; N64.89 Other specified disorders of breast; I11.0 Hypertensive heart disease with heart failure; I50.9 Heart failure, unspecified; Z88.0 Allergy status to penicillin; Z79.899 Other long term (current) drug therapy
CPT/HCPCS: 88305

== ENCOUNTER 2021-08-15 17:36 | Emergency (ER) | payer OTHER ==
[2021-08-15] MEDS ORDERED: KETOROLAC 30 MG/1 ML INJ IV ONE (18:03)
[2021-08-15] MEDS ORDERED: hydrALAZINE 20 MG/1 ML INJ IV ONE (18:03)
[2021-08-15] MEDS ORDERED: dexAMETHasone 20 MG/5 ML VIAL IV ONE (18:03)
--- NOTE | 2021-08-15 18:19 | Emergency Department Report ---
ED General Adult HPI - General Chief complaint: Fever Stated complaint: Sore throat, hypertension Source: patient Mode of arrival: Ambulatory Limitations: No Limitations - History of Present Illness Initial comments: 36-year-old -Turkish female patient with history of hypertension presents with complaints of sore throat, body aches, chills, and fever for the past few days. Patient states pain worsens with swallowing and rates her current pain is 8/10 in severity. Any difficulty opening or closing her jaw, vomiting, diarrhea, loss of taste or smell, cough, shortness of breath, or chest pain. She has not tried any OTC medications for symptoms. She reports compliance with her blood pressure medication at home (lisinopril 10 mg) states her blood pressure normally runs in the 130s systolically, however since the onset of her symptoms her blood pressure has been elevated. - Related Data Previous Rx's Medication Instructions Recorded Last Taken Type hydroCHLOROthiazide [HCTZ] 25 mg PO QDAY #30 tablet 11/16/20 Unknown Rx lisinopriL [Lisinopril] 10 mg PO QDAY #30 tablet 11/16/20 Unknown Rx Clindamycin [Clindamycin CAP] 300 mg PO Q8H 10 Days #30 cap 08/15/21 Unknown Rx Ibuprofen [Motrin 800 MG tab] 800 mg PO Q8HR PRN #20 tablet 08/15/21 Unknown Rx Allergies Allergy/AdvReac Type Severity Reaction Status Date / Time penicillin Allergy Swelling Verified 11/16/20 17:54 ED Review of Systems ROS: Stated complaint: Sore throat, hypertension Other details as noted in HPI Constitutional: chills, fever, malaise. denies: diaphoresis, weakness ENT: throat pain Respiratory: denies: cough, shortness of breath Cardiovascular: denies: chest pain Gastrointestinal: denies: abdominal pain, nausea, vomiting, diarrhea Skin: denies: rash, lesions Neurological: denies: headache Hematological/Lymphatic: denies: swollen glands ED Past Medical Hx - Past Medical History Hx Hypertension: Yes Hx Congestive Heart Failure: Yes Additional medical history: Morbid Obesity - Social History Smoking Status: Never Smoker Substance Use Type: None - Medications Home Medications: Home Medications Medication Instructions Recorded Confirmed Last Taken Type hydroCHLOROthiazide [HCTZ] 25 mg PO QDAY #30 tablet 11/16/20 Unknown Rx lisinopriL [Lisinopril] 10 mg PO QDAY #30 tablet 11/16/20 Unknown Rx Clindamycin [Clindamycin CAP] 300 mg PO Q8H 10 Days #30 cap 08/15/21 Unknown Rx Ibuprofen [Motrin 800 MG tab] 800 mg PO Q8HR PRN #20 tablet 08/15/21 Unknown Rx ED Physical Exam - General Limitations: No Limitations General appearance: alert, in no apparent distress, obese - Head Head exam: Present: atraumatic, normocephalic - Eye Eye exam: Present: normal appearance. Absent: scleral icterus - Expanded ENT Exam Expanded Mouth exam: Present: tongue normal. Absent: drooling, trismus, muffled voice Throat exam: Positive: tonsillar erythema (bilateral ), tonsillomegaly (bilaterally, 3+), tonsillar exudate (bilateral ), other (uvula is midline) - Neck Neck exam: Present: normal inspection - Respiratory Respiratory exam: Present: normal lung sounds bilaterally. Absent: respiratory distress - Cardiovascular Cardiovascular Exam: Present: regular rate, normal rhythm - Neurological Exam Neurological exam: Present: alert, oriented X3 - Psychiatric Psychiatric exam: Present: normal affect, normal mood - Skin Skin exam: Present: warm, dry, intact, normal color. Absent: rash, cyanosis, diaphoretic ED Course Vital Signs 08/15/21 08/15/21 08/15/21 17:44 18:20 18:21 Temperature 101.5 F H Pulse Rate 116 H 115 H Respiratory 20 20 Rate Blood Pressure 230/131 Blood Pressure [Left] Blood Pressure 229/132 [Right] O2 Sat by Pulse 95 Oximetry 08/15/21 08/15/21 08/15/21 20:06 21:35 22:42 Temperature 101.9 F H 99.8 F H Pulse Rate 118 H 111 H 104 H Respiratory 18 14 Rate Blood Pressure 206/154 Blood Pressure 209/129 [Left] Blood Pressure 174/99 209/129 [Right] O2 Sat by Pulse 96 98 Oximetry 08/15/21 22:43 Temperature Pulse Rate 100 H Respiratory 18 Rate Blood Pressure Blood Pressure 176/109 [Left] Blood Pressure [Right] O2 Sat by Pulse 95 Oximetry ED Medical Decision Making - Medical Decision Making 36-year-old -Turkish female patient with history of hypertension presents with complaints of sore throat, body aches, chills, and fever for the past few days. Patient states pain worsens with swallowing and rates her current pain is 8/10 in severity. Any difficulty opening or closing her jaw, vomiting, diarrhea, loss of taste or smell, cough, shortness of breath, or chest pain. She has not tried any OTC medications for symptoms. She reports compliance with her blood pressure medication at home (lisinopril 10 mg) states her blood pressure normally runs in the 130s systolically, however since the onset of her symptoms her blood pressure has been elevated. Acute bacterial pharyngitis noted on exam. No peritonsillar abscess noted or trismus. Rapid strep is negative. Patient given 1 L saline bolus and pain meds along with hydralazine for elevated blood pressure. Penicillin allergy per patient. We will treat for acute bacterial pharyngitis with clindamycin. Patient to follow-up with PCP in 3 days. Heart rates mildly elevated at 104 after fluids. She is well-appearing and stable for discharge home. Patient to monitor blood pressure at home. Discussed signs and symptoms that should prompt immediate return to the ED, patient states understanding. Patient also seen by Dr. Abel who agreed with disposition. Critical care attestation.: If time is entered above; I have spent that time in minutes in the direct care of this critically ill patient, excluding procedure time. ED Disposition Clinical Impression: Acute bacterial pharyngitis Disposition: 01 HOME / SELF CARE / HOMELESS Is pt being admited?: No Condition: Stable Instructions: Pharyngitis Prescriptions: Clindamycin [Clindamycin CAP] 300 mg PO Q8H 10 Days #30 cap Ibuprofen [Motrin 800 MG tab] 800 mg PO Q8HR PRN #20 tablet PRN Reason: pain/fever Referrals: PRIMARY CARE, [Primary Care Provider] - 2-3 Days Forms: Work/School Release Form(ED)
[2021-08-15] MEDS ORDERED: ACETAMINOPHEN 500 MG TAB PO STA (20:09)
[2021-08-15] MEDS ORDERED: SODIUM CHLORIDE 0.9% 1000 ML 1,000 ML IV ONE (20:29)
[2021-08-15] MEDS ORDERED: oxyCODONE /ACETAMINOPHEN 5-325MG TAB PO ONE (21:27)
--- NOTE | 2021-08-15 21:41 | Event Note ---
I evaluated patient. Normal voice. Exudative pharyngitis present. Differential diagnosis includes streptococcal pharyngitis mononucleosis. Patient given supportive care instructions.
[2021-08-15] MEDS ORDERED: hydrALAZINE 25 MG TAB PO ONE (22:00)
[2021-08-15 22:44] VITALS: BP 176/109
== END 2021-08-15 23:39 | disposition home or self-care (01) ==
LOC: ED 17:36
DX: J02.9 Acute pharyngitis, unspecified (principal); I10 Essential (primary) hypertension; Z86.79 Personal history of other diseases of the circulatory system; Z88.0 Allergy status to penicillin
CPT/HCPCS: 87116; 87430; 96361; 96374; 96375; 99283; J0360; J1100; J1885; J7030; Q0162